=== PATIENT | female | born 2000 | race Caucasian/White ===

== ENCOUNTER 2023-10-05 10:24 | Emergency (ER) | payer BC, SELFPAY ==
--- NOTE | ~2023-10-05 | CT_ITS ---
CT of the Abdomen and Pelvis: Indication: Kidney stone, ovarian cyst Technique: 2.5 mm axial scans were obtained through the abdomen and pelvis following intravenous adm inistration of 100 cc of Omnipaque 350. Dose reduction technique was used on this scan by utilizing a utomated exposure control and iterative reconstruction technique. The dose-length product (DLP) was 7 39.79 mGy-cm. Findings: Scans through the lung bases demonstrate 6 mm noncalcified right lower lobe pulmonary nodu le. The liver, spleen, pancreas, gallbladder, adrenals and kidneys are within normal limits. No evidence of aortic aneurysm. No lymphadenopathy. No bowel obstruction or bowel wall thickening. There is no evidence to suggest acute appendicitis. Images through the pelvis were performed. Urinary bladder unremarkable. No significant adnexal mass s een. No ascites. Impression: 6 mm right lower lobe pulmonary nodule. According to Fleischner Society criteria, for a low-risk fish ent, follow-up CT scan at 6-12 months recommended, then consider additional 18-[address] For a hig h-risk patient, follow-up CT scans at 6-12 months and 18-24 months are recommended. No other significant findings. Reviewed, dictated and finalized at location . Impression: 6 mm right lower lobe pulmonary nodule. According to Fleischner Society criteri a, for a low-risk patient, follow-up CT scan at 6-12 months recommended, then c onsider additional 18-[address] For a high-risk patient, follow-up CT scans at 6-12 months and 18-24 months are recommended. No other significant findings.
[2023-10-05 11:07] VITALS: BP 128/81; PULSE 83; RESP 18; TEMP 37.1; O2SAT 100
--- NOTE | 2023-10-05 11:10 | ED.FEMALEGU ---
HPI - Female Genitourinary General Chief complaint: Urogenital-Female <Chaim Neri APRN - Last Filed: 10/05/23 13:45> Stated complaint: flank/pelvic pain <Chaim Neri APRN - Last Filed: 10/05/23 13:45> Time Seen by Provider: 10/05/23 12:24 <Chaim Neri APRN - Last Filed: 10/05/23 13:45> Focused HPI: Kenyetta is a 23-year-old female patient presenting to the ER today with complaints of pelvic/low back pain. States that she was seen at the urgent care and sent to the ER for further evaluation. States that her urine test at the urgent care was negative for any sign of infection but they were concerned that maybe she had a stone. Denies any flank pain currently but states that every now and then she will have a sharp pain in her back and she has UTI symptoms with burning with urination. Last menstrual period was 2 weeks ago. States she has not had sexual intercourse since March and is not concern for any sexually transmitted infection. General: Well-developed, well nourished, in no apparent distress. Head: Normocephalic, atraumatic. Cardio: Regular rate and rhythm, s1 and s2 normal, no murmur appreciated. Resp: Clear to auscultation bilaterally, no rhonchi, rales, wheezing or rubs. Abdomen: Soft, pliable, bowel sounds present in all quadrants, mildly tender over the upper abdomen and the pelvis, no organomegly, no CVAT tenderness. Patient screened in triage and initial orders placed. Additional care and disposition to be based upon diagnostic testing and treatment. <Chaim Neri APRN - Last Filed: 10/05/23 13:45> Source: patient <Chaim Neri APRN - Last Filed: 10/05/23 13:45> Mode of arrival: ambulatory <Chaim Neri APRN - Last Filed: 10/05/23 13:45> Limitations: no limitations <Chaim Neri APRN - Last Filed: 10/05/23 13:45> History of Present Illness HPI Narrative: [age] female presenting to the emergency department for evaluation of intermittent urinary symptoms. Patient states over the course of the last year 3-4 time she has developed pain and burning with urination. Patient did present to her primary care physician and was told multiple times that she does not have a urinary tract infection. Patient was complaining of the intensity of the pain so she was encouraged to follow-up with emergency department. Patient declines being sexually active, patient is not diabetic. Patient is not currently menstruating <Anand Duckworth MD - Last Filed: 10/05/23 20:49> Related Data Allergies/Adverse reactions: Allergies Allergy/AdvReac Type Severity Reaction Status Date / Time No Known Allergies Allergy Verified 10/05/23 13:57 <Chaim Neri APRN - Last Filed: 10/05/23 13:45> Review of Systems Review of Systems: All systems reviewed & are unremarkable except as noted in HPI and below <Anand Duckworth MD - Last Filed: 10/05/23 20:49> PMFSH Comments At the time of my signature, I reviewed and agree with the nursing past medical, surgical, social, and family history. There is no relevant family history pertinent to the patient complaint. <Chaim Neri APRN - Last Filed: 10/05/23 13:45> Exam Narrative: APPEARANCE: Well appearing, no pain, no distress, well-nourished. HEAD: normocephalic, atraumatic. EYES: PERRLA/EOMI, conjunctivae clear. NOSE: Normal no drainage EARS:TMS clear with good light reflex. THROAT: Pharynx clear, no exudate. NECK: Supple. No adenopathy, no masses. RESPIRATORY: Airway patent, respirations nonlabored. Clear to auscultation bilaterally, no rales, rhonchi, wheezing. CARDIOVASCULAR: Regular rate and rhythm without murmurs rubs or gallops. ABDOMINAL: Soft, nontender, nondistended, normal bowel sounds MUSCULOSKELETAL: Moves all extremities. Strength/ROM intact, No edema, No calf te grossly Good gait. Good coordination SKIN: Warm, dry. Normal Color <Anand Linares
[2023-10-05 11:27] LABS: Basophils Percent Auto 0.4 % (0.2-1.2); Eosinophils Percent Auto 0.4 % (0-4.4); Hematocrit 41.3 % (37.0-47.0); Hemoglobin 13.3 g/dL (12.0-15.0); Immature Granulocyte Absolute 0.03 K/mm3 (0.00-0.031); Immature Granulocyte Percent A 0.4 % (0-0.5); Lymphocytes Absolute Auto 1.18 K/mm3 (0.9-3.2); Lymphocytes Percent Auto 15.3 % (18.3-44.2); Mean Corpuscular HGB Conc 32.2 g/dl (32-36); Mean Corpuscular Volume 93.2 fl (80-100); Mean Platelet Volume 10.4 fl (7.4-10.4); Monocytes Absolute Auto 0.3 K/mm3 (0.1-0.6); Neutrophils Absolute Auto 6.2 K/mm3 (1.3-6.7); Neutrophils Percent Auto 79.5 % (45.5-73.1); Platelet Count Result 247 k/mm3 (150-375); Red Blood Count 4.43 M/mm3 (4.2-5.4); Red Cell Distribution Width 12.8 % (11.5-14.5); White Blood Count 7.7 K/mm3 (4.5-10.0)
[2023-10-05 11:29] LABS: Appearance Urine Clear (Clear); Bacteria Urine None Seen /hpf; Bilirubin Urine Negative (Negative); Blood Urine 1+ (Negative); Color Urine Yellow (Yellow); Glucose Urine UA Negative (Negative); Ketones Urine Negative (Negative); Leukocyte Esterase Ur Negative LEU/UL (Negative); Nitrate Urine Negative (Negative); Non Pathogenic Casts 0-2; Protein Urine Negative (Negative); Specific Grav Ur 1.022 (1.001-1.035); Squamous Epithelial Cell Urine None Seen /hpf (Few); Urobilinogen Urine 0.2 mg/dL (<2.0); WBC Urine 0-5 /hpf (0-3); pH Urine 5.5 (5.0-9.0)
[2023-10-05 11:30] LABS: Add Urine Microscopic? YES
[2023-10-05 11:38] LABS: Alanine Aminotransferase 15 U/L (6-35); Albumin Level 4.7 g/dL (3.5-5.1); Alkaline Phosphatase 62 U/L (38-126); Anion Gap 8 mmol/L (8-16); Aspartate Amino Transferase 24 U/L (14-36); Bilirubin,Total 0.5 mg/dL (0.2-1.3); Blood Urea Nitrogen 9 mg/dL (7-17); Carbon Dioxide 27 mmol/L (22-30); Chloride 104 mmol/L (98-107); Estimated Glomerular Filt Rate > 60; Glucose 109 mg/dL (65-110); Potassium 4.1 mmol/L (3.4-5.0); Sodium 139 mmol/L (137-145)
[2023-10-05] MEDS: PHENAZOPYRIDINE HCL 100 MG TABLET PO (14:00)
[2023-10-05 14:06] VITALS: BP 119/76; PULSE 74; RESP 16; TEMP 36.7; O2SAT 98
== END 2023-10-05 14:08 | disposition home or self-care (01) ==
LOC: ANHED 13:05
PROVIDERS: Emergency Medicine; Emergency Provider Emergency Medicine
DX: R31.9 Hematuria, unspecified (principal); R30.0 Dysuria; R91.1 Solitary pulmonary nodule
CPT/HCPCS: 36415; 74177; 80053; 81025; 85025; 87086; 99284; A9270; Q9967